=== PATIENT | female | born 1975 | race Caucasian/White ===

== ENCOUNTER 2021-03-04 07:20 | Outpatient (RCR) | payer OTHER, SELFPAY ==
[2021-03-04 09:34] VITALS: BP 127/73; PULSE 87; RESP 18; TEMP 36.1; O2SAT 99
[2021-03-04] MEDS: ACETAMINOPHEN 325 MG TABLET 650 MG PO (09:35)
[2021-03-04] MEDS: diphenhydrAMINE HCl CAP 25 MG CAPSULE PO (09:35)
[2021-03-04] MEDS: FAMOTIDINE 20 MG TABLET PO (09:36)
[2021-03-04 11:06] VITALS: BP 103/68; PULSE 78; RESP 16; O2SAT 99
== END 2021-03-04 17:00 ==
LOC: AMCINF 07:20
PROVIDERS: Visit Provider Internal Medicine Hematology & Oncology
DX: U07.1 COVID-19 (principal)
CPT/HCPCS: A9270; M0247; Q0247